=== PATIENT | female | born 1935 | race Hispanic/Latino ===

== ENCOUNTER 2018-03-09 12:28 | Emergency (ER) | payer MEDICARE ==
[2018-03-09 12:33] VITALS: PULSE 71; RESP 16; TEMP 98; O2SAT 100
[2018-03-09] MEDS ORDERED: Tdap Vaccine 0.5 ml Vial (10-64 yrs) IM ONE ×2 (12:52→13:00)
--- NOTE | 2018-03-09 13:24 | ED PDOC ---
HPI: Head Injury Time Seen by Provider: 03/09/18 12:52 Chief Complaint (Nursing): Abnormal Skin Integrity Chief Complaint (Provider): Head trauma History Per: Patient History/Exam Limitations: no limitations Injury Occurred (Timing): Just Before Arrival Onset/Duration Of Symptoms: Hrs (1 hour [employer]CH [employer]) Patient States: Fell Striking Head Loss Of Consciousness: No Additional Complaint(s): 82 year old female presents to the ED for evaluation after slipping on the wet floor and striking the right side of her forehead. She has a laceration on her right eyebrow. Patient reports taking a baby aspirin every night before she goes to sleep. Otherwise: (-) LOC, (-) headache, (-) neck pain, (-) other injury , (-) nausea, (-) vomiting, (-) dizziness, (-) other trauma, (-) subjective neurologic symptoms. PMD: Kade Holliday Past Medical History Reviewed: Historical Data, Nursing Documentation, Vital Signs Vital Signs: Last Vital Signs Temp 98.0 F 03/09/18 12:31 Pulse 71 03/09/18 12:31 Resp 16 03/09/18 12:31 BP 164/72 H 03/09/18 12:31 Pulse Ox 100 03/09/18 12:31 - Medical History PMH: HTN - Surgical History Surgical History: No Surg Hx - Family History Family History: States: Unknown Family Hx - Allergies Allergies/Adverse Reactions: Allergies Allergy/AdvReac Type Severity Reaction Status Date / Time No Known Allergies Allergy Verified 03/09/18 12:31 Review of Systems ROS Statement: Except As Marked, All Systems Reviewed And Found Negative Eyes: Positive for: Other (laceration to right eyebrow) Physical Exam - Reviewed Nursing Documentation Reviewed: Yes Vital Signs Reviewed: Yes - Physical Exam Comments: GENERAL APPEARANCE: Patient is awake, alert, oriented x 3, in no acute distress. SKIN: Warm, dry; (-) cyanosis; (-) rash. (+) 1.5 cm superficial laceration to right eyebrow. HEAD: (-) scalp swelling or tenderness. EYES: (-) conjunctival pallor, (-) scleral icterus. ENMT: (-) sinus tenderness; mucous membranes are moist. NECK: (-) tenderness, (-) stiffness, (-) meningismus, (-) lymphadenopathy. CHEST AND RESPIRATORY: (-) rales, (-) rhonchi, (-) wheezes; breath sounds equal bilaterally. HEART AND CARDIOVASCULAR: (-) irregularity; (-) murmur, (-) gallop. ABDOMEN AND GI: Soft; (-) tenderness. EXTREMITIES: (-) deformity. NEURO AND PSYCH: Mental status as above. web search evaluator: Pupils equal and reactive; EOMI; (-) facial asymmetry; tongue and uvula midline. Strength symmetric. - ECG O2 Sat by Pulse Oximetry: 100 (RA) Pulse Ox Interpretation: Normal Medical Decision Making Medical Decision Making: Tme: 12:52 Initial Plan: --CT Head --Tetanus .5 ml IM --Dermabond Time: 13:20 --Patient remains awake, alert, oriented x 3 and is laying in bed comfortably. On exam, neck is supple, repeat neuro shows no focal findings. --Prior to discharge, blood pressure was 196/89. Patient states she feels well and denies headache, dizziness, chest pain and shortness of breath. Patient was advised for continued observation in the ER due to high blood pressure and to wait for repeat blood pressure which she refused. States her blood pressure is elevated because she is anxious from being in the hospital and that she would rather be discharged than stay. Patient was notified of the risk of leaving with high blood pressure and admits she understands the risk, still wants to leave the ER and feels comfortable going home. Advised to follow up with primary care physician in 1-2 days without fail. Advised to follow up elevated bp with pmd. Return to the emergency room at any time for any new or worsening symptoms. Patient states she fully agrees with and understands discharge instructions. States that she agrees with the plan and disposition. Verbalized and repeated discharge instructions and plan. I have given the patient opportunity to ask any additional questions. Scribe Attestation: Documented by Brittaney Greenfield acting as a scribe for Adalgisa Jones PA-C MD Scribe Attestation: All medical record entries made by the Scribe were at my direction and personally dictated by me. I have reviewed the chart and agree that the record accurately reflects my personal performance of the history, physical exam, medical decision making, and the department course for this patient. I have also personally directed, reviewed, and agree with the discharge instructions and disposition. Procedures - Laceration/Wound Repair Right Upper Eye Wound Length (cm): 1.5 Wound's Depth, Shape: superficial Wound Explored: clean Irrigated w/ Saline (ccs): 50 Wound Repaired With: Skin adhesive (Dermabond) Wound Complexity: Simple Progress: Patient tolerated the procedure well. Disposition - Clinical Impression Clinical Impression: Head injury, Facial laceration - Patient ED Disposition Is Patient to be Admitted: No Counseled Patient/Family Regarding: Studies Performed, Diagnosis, Need For Followup - Disposition Disposition: Routine/Home Disposition Time: 14:30 Condition: STABLE Additional Instructions: Thank you for letting us take care of you today. You were treated for head injury, facial laceration. The emergency medical care you received today was directed at your acute symptoms. Return to the Emergency Department if your symptoms worsen, do not improve, or if you have any other problems. Please contact your doctor in 2 days for re-evaluation and follow up. Bring any paperwork you were given at discharge with you along with any medications you are taking to your follow up visit. Our treatment cannot replace ongoing medical care by a primary care provider (PCP) outside of the emergency department. Thank you for allowing the [facility] team to be part of your care today. If you had a CT scan: A Radiologist will review the ED reading if any change in treatment is needed we will contact you. Instructions: Laceration Repair With Glue (DC), Minor Head Injury Forms: [employer] (Chinese) - PA / BOX TENDER / Resident Statement MD/ has reviewed & agrees with the documentation as recorded.
--- NOTE | 2018-03-09 14:12 | CT ---
PROCEDURE: CT HEAD WITHOUT CONTRAST. HISTORY: fall, trauma COMPARISON: None available. TECHNIQUE: Axial computed tomography images were obtained through the head/brain without intravenous contrast. Radiation dose: Total exam DLP = 711.68 mGy-cm. This CT exam was performed using one or more of the following dose reduction techniques: Automated exposure control, adjustment of the mA and/or kV according to patient size, and/or use of iterative reconstruction technique. FINDINGS: HEMORRHAGE: No intracranial hemorrhage. BRAIN: Good corticomedullary differentiation is seen. Diffuse expansion of the ventriculosulcal and cisternal spaces is appreciated with white matter lucency compatible with diffuse cerebral atrophy and chronic microangiopathy. No suspicious extra-axial fluid collection is identified and the midline brain anatomy appears grossly nonfocal as imaged. There is no mass effect throughout. VENTRICLES: Unremarkable. No hydrocephalus. CALVARIUM: No destructive bony lesion or displaced fracture identified including through the skullbase. PARANASAL SINUSES: Unremarkable as visualized. No significant inflammatory changes. MASTOID AIR CELLS: Unremarkable as visualized. No inflammatory changes. OTHER FINDINGS: None. IMPRESSION: No acute intracranial or calvarial findings. Skull base appears intact grossly. Age-appropriate age related neuro degenerative changes are identified.
[2018-03-09 15:08] VITALS: BP 196/89
== END 2018-03-09 15:05 | disposition home or self-care (01) ==
LOC: H.ER 12:28
DX: S01.111A Laceration without foreign body of right eyelid and periocular area, initial encounter (principal); S09.90XA Unspecified injury of head, initial encounter; W19.XXXA Unspecified fall, initial encounter; Y92.89 Other specified places as the place of occurrence of the external cause; I10 Essential (primary) hypertension

== ENCOUNTER 2018-04-07 14:43 | Inpatient (IN) | payer MEDICARE ==
--- NOTE | 2018-04-07 15:29 | ED PDOC ---
Lower Extremity Pain/Injury Time Seen by Provider: 04/07/18 15:13 Chief Complaint (Nursing): Lower Extremity Problem/Injury Chief Complaint (Provider): Pedal Edema History Per: Patient History/Exam Limitations: no limitations Onset/Duration Of Symptoms: Days (three) Current Symptoms Are (Timing): Still Present Severity: Mild Pain Scale Rating Of: 0 - Risk Factors DVT Risk Factors: Pos: Decreased Mobility, Decreased Activity Past Medical History Reviewed: Historical Data, Nursing Documentation, Vital Signs Vital Signs: Last Vital Signs Temp 98.8 F 04/07/18 14:53 Pulse 72 04/07/18 14:53 Resp 18 04/07/18 14:53 BP Pulse Ox 98 04/07/18 14:53 - Medical History PMH: HTN - Family History Family History: States: Unknown Family Hx - Allergies Allergies/Adverse Reactions: Allergies Allergy/AdvReac Type Severity Reaction Status Date / Time No Known Allergies Allergy Verified 04/07/18 14:53 Wells Criteria for PE - Wells Criteria for Pulmonary Embolism P.E is #1 Diagnosis, or Equally Likely: No Heart Rate >100: No Immobilization at least 3 days;Surgery previous 4 weeks: No Previous, objectively diagnosed PE or DVT: No Total Score: 0 Review of Systems ROS Statement: Except As Marked, All Systems Reviewed And Found Negative Cardiovascular: Positive for: Edema Physical Exam - Reviewed Nursing Documentation Reviewed: Yes Vital Signs Reviewed: Yes - Physical Exam Appears: Positive for: Well, Non-toxic, No Acute Distress. Negative for: Uncomfortable Head Exam: Positive for: ATRAUMATIC, NORMAL INSPECTION, NORMOCEPHALIC Skin: Positive for: Normal Color, Warm, Dry Eye Exam: Positive for: Normal appearance. Negative for: Periorbital swelling, Periorbital tenderness Neck: Positive for: Normal, Painless ROM, Supple Cardiovascular/Chest: Positive for: Regular Rate, Rhythm. Negative for: Bradycardia, Tachycardia Respiratory: Positive for: Normal Breath Sounds. Negative for: Crackles, Rales , Rhonchi, Stridor, Wheezing, Respiratory Distress Pulses-Carotid (L): 2+ Pulses-Carotid (R): 2+ Pulses-Post. Tibialis (L): 2+ Pulses-Post. Tibialis (R): 2+ Extremity: Positive for: Pedal Edema (bilaterally distal to ankles only) DTR - Knee (R): 2+ DTR - Knee (L): 2+ DTR - Ankle (R): 2+ DTR - Ankle (L): 2+ - Laboratory Results Result Diagrams: 04/07/18 15:30 04/07/18 15:30 - ECG O2 Sat by Pulse Oximetry: 98 Medical Decision Making Medical Decision Making: pedal edema r/o DVT, absent warmth or erythemity and pain Disposition - Clinical Impression Clinical Impression: Heart failure - Patient ED Disposition Is Patient to be Admitted: Yes Discussed With DrFrances: Tyler Billingsley Doctor Will See Patient In The: Hospital Counseled Patient/Family Regarding: Studies Performed, Diagnosis, Need For Followup - Disposition Disposition: Routine/Home Disposition Time: 17:38 Condition: STABLE - Pt Status Changed To: Hospital Disposition Of: Inpatient - Admit Certification Admit to Inpatient:: After my assessment, the patient will require hospitalization for at least two midnights. This is because of the severity of symptoms shown, intensity of services needed, and/or the medical risk in this patient being treated as an outpatient.
[2018-04-07 15:39] LABS: BASO % 0.4 % (0.0-2.0); EOS % 0.2 % (0.0-4.0); HEMOGLOBIN 13.1 g/dL (12.0-16.0); LYMPH # 0.4 K/uL (1.0-4.3); LYMPH % 4.1 % (20.0-40.0); MEAN CELL VOLUME 88.4 fl (81.0-99.0); MEAN CORPUSCULAR HEMOGLOBIN 31.1 pg (27.0-31.0); MEAN CORPUSCULAR HGB CONC 35.1 g/dL (33.0-37.0); MEAN PLATELET VOLUME 7.3 fl (7.2-11.7); MONO # 0.8 K/uL (0.0-0.8); MONO % 7.8 % (0.0-10.0); NEUT # 9.1 K/uL (1.8-7.0); NEUT % 87.5 % (50.0-75.0); NRBC % 0.1 % (0.0-0.0); PLATELET COUNT 412 K/uL (130-400); RBC 4.22 Mil/uL (3.80-5.20); RED CELL DISTRIBUTION WIDTH 14.4 % (11.5-14.5); WHITE BLOOD COUNT 10.4 K/uL (4.8-10.8)
--- NOTE | 2018-04-07 15:56 | RAD ---
HISTORY: r/o cardiom COMPARISON: No prior. FINDINGS: LUNGS: There are fibrotic changes in the upper lobes with calcified granulomas. There is also pulmonary venous congestion. No focal consolidation. No active pulmonary disease. PLEURA: No significant pleural effusion identified, no pneumothorax apparent. CARDIOVASCULAR: Normal. OSSEOUS STRUCTURES: No significant abnormalities. VISUALIZED UPPER ABDOMEN: Normal. OTHER FINDINGS: None. IMPRESSION: Pulmonary venous congestion. No active pulmonary disease. COPD.
[2018-04-07 16:02] LABS: ALB/GLOB RATIO 0.8 (1.0-2.1); ALBUMIN 3.5 g/dL (3.5-5.0); ALT/SGPT 59 U/L (9-52); AST/SGOT 39 U/L (14-36); B-TYPE NATRIURETIC PEPTIDE 2360 pg/ml (0-900); BLOOD UREA NITROGEN 17 mg/dl (7-17); GFR AFRICAN-AMERICAN > 60; GFR NON-AFRICAN AMERICAN > 60
[2018-04-07 16:43] LABS: SQUAMOUS EPITHIAL 4 /hpf (0-5); URINE AMORPHOUS SEDIMENT RARE /ul (<OCC); URINE BACTERIA RARE (<OCC); URINE BILIRUBIN NEGATIVE (NEGATIVE); URINE BLOOD NEGATIVE (NEGATIVE); URINE CLARITY CLOUDY (Clear); URINE COLOR YELLOW (YELLOW); URINE GLUCOSE (UA) 50 mg/dL (Normal); URINE LEUKOCYTE ESTERASE LARGE Leu/uL (Negative); URINE PROTEIN 30 mg/dL (NEGATIVE); URINE UROBILINOGEN 0.2-1.0 mg/dL (0.2-1.0)
[2018-04-07 17:31] LABS: BANDS 5 % (0-2); LYMPHOCYTE 5 % (20-50); MONOCYTE 9 % (0-10); NEUTROPHIL 81 % (42-75); TOTAL CELLS COUNTED 100
[2018-04-07 17:32] LABS: PLATELET ESTIMATE NORMAL (NORMAL)
[2018-04-08] MEDS ORDERED: Pneumococcal 23-Valent Vaccine IM ONE (06:00)
[2018-04-08 07:17] LABS: T4 7.5 ug/dl (5.5-11.0)
[2018-04-08 07:31] LABS: T3 0.88 nmol/L (1.49-2.60)
[2018-04-08] MEDS: Potassium Chloride 20 mEq ER Tab PO SCH (09:15)
--- NOTE | 2018-04-08 10:05 | US ---
PROCEDURE: Bilateral lower extremity venous duplex Doppler. HISTORY: r/o dvt COMPARISON: None available. TECHNIQUE: Bilateral common femoral, superficial femoral, popliteal and posterior tibial veins were evaluated. Flow was assessed with color Doppler, compressibility, assessment of phasic flow and augmentation response. FINDINGS: COMMON FEMORAL VEIN: Right CFV: There is normal color flow, compressibility and augmentation response. Left CFV: There is normal color flow, compressibility and augmentation response. SUPERFICIAL FEMORAL VEIN: Right SFV: There is normal color flow, compressibility and augmentation response. Left SFV: There is normal color flow, compressibility and augmentation response. POPLITEAL VEIN: Right Popliteal: There is normal color flow, compressibility and augmentation response. Left Popliteal: There is normal color flow, compressibility and augmentation response. POSTERIOR TIBIAL VEIN: Right PTV: There is normal color flow, compressibility and augmentation response. Left PTV: There is normal color flow, compressibility and augmentation response. OTHER FINDINGS: No popliteal cyst. IMPRESSION: No evidence of deep venous thrombosis. A preliminary report was provided by [employer] [facility].
--- NOTE | 2018-04-08 12:04 | CP.PCM.CON ---
History of Present Illness - History of Present Illness History of Present Illness: I was asked to evaluate patient by Dr Billingsley. Patient is a 82 year old female with PMH HTN who presents with dyspnea. Symptpoms abegan about 3 weeks ago and have been progressive. The patient complains of dyspnea on exertion which is sorse after walking one block. The patient also developed lower extremity edema. Pro BNP was elevated. Review of Systems - Constitutional Constitutional: absent: As Per HPI, Anorexia, Chills, Daytime Sleepiness, Excessive Sweating, Fatigue, Fever, Frequent Falls, Headache, Increased Appetite , Lethargy, Malaise, Night Sweats, Snoring, Sleep Apnea, Weight Gain, Weight Loss, Weakness, Other - EENT Eyes: absent: As Per HPI, Blind Spots, Blurred Vision, Change in Vision, Decreased Night Vision, Diplopia, Discharge, Dry Eye, Exophthalmos, Floaters, Irritation, Itchy Eyes, Loss of Peripheral Vision, Pain, Photophobia, Requires Corrective Lenses, Sees Flashes, Spots in Vision, Tunnel Vision, Other Visual Disturbances, Loss of Vision, Other Ears: absent: As Per HPI, Decreased Hearing, Ear Discharge, Ear Pain, Tinnitus, Abnormal Hearing, Disequilibrium, Dizziness, Other Nose/Mouth/Throat: absent: As Per HPI, Epistaxis, Nasal Congestion, Nasal Discharge, Nasal Obstruction, Nasal Trauma, Nose Pain, Post Nasal Drip, Sinus Pain, Sinus Pressure, Bleeding Gums, Change in Voice, Dental Pain, Dry Mouth, Dysphagia, Halitosis, Hoarsness, Lip Swelling, Mouth Lesions, Mouth Pain, Odynophagia, Sore Throat, Throat Swelling, Tongue Swelling, Facial Pain, Neck Pain, Neck Mass, Other - Cardiovascular Cardiovascular: Dyspnea, Leg Edema - Respiratory Respiratory: Dyspnea - Gastrointestinal Gastrointestinal: absent: As Per HPI, Abdominal Pain, Belching, Bloating, Change in Bowel Habits, Change in Stool Character, Coffee Ground Emesis, Constipation, Cramping, Diarrhea, Dyspepsia, Dysphagia, Early Satiety, Excessive Flatus, Fecal Incontinence, Heartburn, Hematemesis, Hematochezia, Loose Stools, Melena, Nausea, Odynophagia, Temesmus, Vomiting, Other - Genitourinary Genitourinary: absent: As Per HPI, Change in Urinary Stream, Difficulty Urinating, Dysuria, Flank Pain, Hematuria, Pyuria, Nocturia, Urinary Incontinence, Urinary Frequency, Urinary Hesitance, Urinary Urgency, Voiding Freq/Small Amts, Freq UTI, Hx Renal/Bladder Calculi, Hx /Renal Surgery, Bladder Distension, Other - Musculoskeletal Musculoskeletal: absent: As Per HPI, Abnormal Gait, Arthralgias, Atrophy, Back Pain, Deformity, Joint Swelling, Limited Range of Motion, Loss of Height, Muscle Cramps, Muscle Weakness, Myalgias, Neck Pain, Numbness, Radiating Pain into Limb, Stiffness, Tingling, Other - Integumentary Integumentary: absent: As Per HPI, Acne, Alopecia, Bleeding Lesions, Change in Hair, Change in Nails, Change in Pigmentation, Changing Lesions, Dry Skin, Erythema, Furuncle, Hirsutism, Lesions, New Lesions, Non-Healing Lesions, Photosensitivity, Pruritus, Rash, Skin Pain, Skin Ulcer, Sores, Striae, Swelling , Unusual Bruising, Wounds, Jaundice, Other - Neurological Neurological: absent: As Per HPI, Abnormal Gait, Abnormal Hearing, Abnormal Movements, Abnormal Speech, Behavioral Changes, Burning Sensations, Confusion, Convulsions, Disequilibrium, Dizziness, Numbness, Focal Weakness, Frequent Falls , Headaches, Lack of Coordination, Loss of Vision, Memory Loss, Paresthesias, Radicular Pain, Restless Legs, Sensory Deficit, Syncope, Tingling, Tremor, Vertigo, Weakness, Other Visual Disturbances, Other - Psychiatric Psychiatric: absent: As Per HPI, Abnormal Sleep Pattern, Anhedonia, Anxiety, Auditory Hallucinations, Behavioral Changes, Change in Appetite, Change in Libido, Confusion, Depression, Difficulty Concentrating, Hallucinations, Homicidal Ideation, Hopelessness, Irritability, Memory Loss, Mood Swings, Panic Attacks, Paranoia, Suicidal Ideation, Visual Hallucinations, Tactile Hallucinations, Other - Endocrine Endocrine: absent: As Per HPI, Change in Body Appearance, Change in Libido, Cold Intolorance, Deepening of Voice, Excessive Sweating, Fatigue, Flushing, Heat Intolorance, Increase in Ring/Shoe/Hat Size, Palpitations, Polydipsia, Polyphagia, Polyuria, Other - Hematologic/Lymphatic Hematologic: absent: As Per HPI, Easy Bleeding, Easy Bruising, Lymphadenopathy, Other Past Patient History - Past Medical History & Family History Past Medical History?: Yes - Past Social History Smoking Status: Former Smoker - CARDIAC Hx Cardiac Disorders: Yes (HTN) Hx Hypertension: Yes - PULMONARY Hx Respiratory Disorders: No - NEUROLOGICAL Hx Neurological Disorder: No - HEENT Hx HEENT Problems: No - RENAL Hx Chronic Kidney Disease: No - ENDOCRINE/METABOLIC Hx Endocrine Disorders: No - HEMATOLOGICAL/ONCOLOGICAL Hx Blood Disorders: No - INTEGUMENTARY Hx Dermatological Problems: No - MUSCULOSKELETAL/RHEUMATOLOGICAL Hx Musculoskeletal Disorders: No Hx Falls: Yes - GASTROINTESTINAL Hx Gastrointestinal Disorders: No - GENITOURINARY/GYNECOLOGICAL Hx Genitourinary Disorders: No - PSYCHIATRIC Hx Psychophysiologic Disorder: No Hx Substance Use: No - SURGICAL HISTORY Hx Surgeries: Yes Hx Hysterectomy: Yes (at age 29) - ANESTHESIA Hx Anesthesia: Yes Hx Anesthesia Reactions: No Hx Malignant Hyperthermia: No Has any member of the family had a problem w/ anesthesia?: No Meds Allergies/Adverse Reactions: Allergies Allergy/AdvReac Type Severity Reaction Status Date / Time No Known Allergies Allergy Verified 04/07/18 14:53 - Medications Medications: Current Medications Atorvastatin Calcium (Lipitor) 20 mg PO [facility] Clonidine HCl (Catapres) 0.1 mg PO BID [facility] Last Admin: 04/08/18 09:14 Dose: 0.1 mg Furosemide (Lasix) 40 mg IV DAILY [facility] Last Admin: 04/08/18 09:15 Dose: 40 mg Metoprolol Tartrate (Lopressor) 200 mg PO BID [facility] Last Admin: 04/08/18 09:16 Dose: 200 mg Potassium Chloride (K-Dur 20 Meq Er Tab) 20 meq PO DAILY [facility] Last Admin: 04/08/18 09:15 Dose: 20 meq Valsartan (Diovan) 320 mg PO DAILY [facility] Last Admin: 04/08/18 09:14 Dose: 320 mg Physical Exam - Constitutional Appears: Non-toxic - Head Exam Head Exam: NORMAL INSPECTION - Eye Exam Eye Exam: Normal appearance - ENT Exam ENT Exam: Mucous Membranes Moist - Neck Exam Neck exam: Positive for: Full Rom - Respiratory Exam Respiratory Exam: Decreased Breath Sounds - Cardiovascular Exam Cardiovascular Exam: REGULAR RHYTHM - GI/Abdominal Exam GI & Abdominal Exam: Normal Bowel Sounds - Rectal Exam Rectal Exam: Deferred - Extremities Exam Extremities exam: Positive for: pedal edema - Back Exam Back exam: NORMAL INSPECTION - Neurological Exam Neurological exam: Alert, Oriented x3 - Psychiatric Exam Psychiatric exam: Normal Affect - Skin Skin Exam: Normal Color Results - Vital Signs Recent Vital Signs: Last Vital Signs Temp 98.4 F 04/08/18 08:17 Pulse 99 H 04/08/18 09:16 Resp 20 04/08/18 08:17 BP 133/74 04/08/18 09:16 Pulse Ox 95 04/08/18 08:17 - Labs Result Diagrams: 04/07/18 15:30 04/07/18 15:30 Labs: Laboratory Results - last 24 hr 04/07/18 04/07/18 04/07/18 15:30 15:30 16:15 WBC 10.4 RBC 4.22 Hgb 13.1 Hct 37.3 MCV 88.4 MCH 31.1 H MCHC 35.1 RDW 14.4 Plt Count 412 H MPV 7.3 Neut % (Auto) 87.5 H Lymph % (Auto) 4.1 L Noble % (Auto) 7.8 Eos % (Auto) 0.2 Baso % (Auto) 0.4 Neut # (Auto) 9.1 H Lymph # (Auto) 0.4 L Noble # (Auto) 0.8 Eos # (Auto) 0.0 Baso # (Auto) 0.0 Neutrophils % (Manual) 81 H Band Neutrophils % 5 H Lymphocytes % (Manual) 5 L Monocytes % (Manual) 9 Platelet Estimate Normal ESR 65 H Sodium 130 L Potassium 3.4 L Chloride 86 L Carbon Dioxide 30 Anion Gap 17 BUN 17 Creatinine 0.5 L Est GFR ( Amer) > 60 Est GFR (Non-Af Amer) > 60 Random Glucose 143 H Calcium 9.0 Total Bilirubin 1.1 AST 39 H ALT 59 H Alkaline Phosphatase 72 Troponin I 0.0210 NT-Pro-B Natriuret Pep 2360 H Total Protein 7.9 Albumin 3.5 Globulin 4.4 H Albumin/Globulin Ratio 0.8 L Triglycerides Cholesterol LDL Cholesterol Direct HDL Cholesterol Thyroxine (T4) Total T3 TSH 3rd Generation Urine Color Yellow Urine Clarity Cloudy Urine pH 7.0 Ur Specific Aldrich 1.012 Urine Protein 30 Urine Glucose (UA) 50 Urine Ketones Negative Urine Blood Negative Urine Nitrate Positive H Urine Bilirubin Negative Urine Urobilinogen 0.2-1.0 Ur Leukocyte Esterase Large Urine RBC (Auto) 4 H Urine Microscopic WBC 65 H Ur Squamous Epith Cells 4 Amorphous Sediment Rare H Urine Bacteria Rare 04/07/18 04/08/18 04/08/18 23:17 06:01 07:55 WBC RBC Hgb Hct MCV MCH MCHC RDW Plt Count MPV Neut % (Auto) Lymph % (Auto) Noble % (Auto) Eos % (Auto) Baso % (Auto) Neut # (Auto) Lymph # (Auto) Noble # (Auto) Eos # (Auto) Baso # (Auto) Neutrophils % (Manual) Band Neutrophils % Lymphocytes % (Manual) Monocytes % (Manual) Platelet Estimate ESR Sodium Potassium Chloride Carbon Dioxide Anion Gap BUN Creatinine Est GFR ( Amer) Est GFR (Non-Af Amer) Random Glucose Calcium Total Bilirubin AST ALT Alkaline Phosphatase Troponin I 0.0310 0.0180 NT-Pro-B Natriuret Pep 3180 H Total Protein Albumin Globulin Albumin/Globulin Ratio Triglycerides 76 Cholesterol 118 LDL Cholesterol Direct 60 HDL Cholesterol 29 L Thyroxine (T4) 7.50 Total T3 0.880 L TSH 3rd Generation 1.03 Urine Color Urine Clarity Urine pH Ur Specific Aldrich Urine Protein Urine Glucose (UA) Urine Ketones Urine Blood Urine Nitrate Urine Bilirubin Urine Urobilinogen Ur Leukocyte Esterase Urine RBC (Auto) Urine Microscopic WBC Ur Squamous Epith Cells Amorphous Sediment Urine Bacteria - EKG Data EKG Interpreted by: Myself EKG shows normal: Sinus rhythm Assessment & Plan (1) Dyspnea Assessment and Plan: tristian cardiac etiology. will obtain echocardiogram Status: Acute (2) Congestive heart failure Assessment and Plan: follow up echo Status: Acute
--- NOTE | 2018-04-08 14:36 | CP.PCM.HP ---
History of Present Illness - History of Present Illness History of Present Illness: This is an 82 y/o female with hx of HTN was admitted for progressive SOB and cough and noted bilateral feet edema for few days. She denies any chest pain. Claims that she had seen her PMD and had full work up and was told to have normal results. She claims to have episodes of SOB and some " anxiety" but was never given treatment. She was noted to have elevated BP despite current medications. At the ER, she was noted to have elevated proBNP. Current meds: Irbesartan Hct, Metoprolol, Clonidine and simvastatin Present on Admission - Present on Admission Any Indicators Present on Admission: No History of DVT/PE: No History of Uncontrolled Diabetes: No Urinary Catheter: No Decubitus Ulcer Present: No Review of Systems - Respiratory Respiratory: Dyspnea, Chest Congestion Past Patient History - Past Medical History & Family History Past Medical History?: Yes - Past Social History Smoking Status: Former Smoker - CARDIAC Hx Cardiac Disorders: Yes (HTN) Hx Hypertension: Yes - PULMONARY Hx Respiratory Disorders: No - NEUROLOGICAL Hx Neurological Disorder: No - HEENT Hx HEENT Problems: No - RENAL Hx Chronic Kidney Disease: No - ENDOCRINE/METABOLIC Hx Endocrine Disorders: No - HEMATOLOGICAL/ONCOLOGICAL Hx Blood Disorders: No - INTEGUMENTARY Hx Dermatological Problems: No - MUSCULOSKELETAL/RHEUMATOLOGICAL Hx Musculoskeletal Disorders: No Hx Falls: Yes - GASTROINTESTINAL Hx Gastrointestinal Disorders: No - GENITOURINARY/GYNECOLOGICAL Hx Genitourinary Disorders: No - PSYCHIATRIC Hx Psychophysiologic Disorder: No Hx Substance Use: No - SURGICAL HISTORY Hx Surgeries: Yes Hx Hysterectomy: Yes (at age 29) - ANESTHESIA Hx Anesthesia: Yes Hx Anesthesia Reactions: No Hx Malignant Hyperthermia: No Has any member of the family had a problem w/ anesthesia?: No Meds Allergies/Adverse Reactions: Allergies Allergy/AdvReac Type Severity Reaction Status Date / Time No Known Allergies Allergy Verified 04/07/18 14:53 Physical Exam - Head Exam Head Exam: NORMAL INSPECTION - Eye Exam Eye Exam: Normal appearance - ENT Exam ENT Exam: Mucous Membranes Moist - Respiratory Exam Respiratory Exam: Decreased Breath Sounds - Cardiovascular Exam Cardiovascular Exam: REGULAR RHYTHM - GI/Abdominal Exam GI & Abdominal Exam: Normal Bowel Sounds - Neurological Exam Neurological exam: CN II-XII Intact - Psychiatric Exam Psychiatric exam: Normal Mood Results - Vital Signs Recent Vital Signs: Last Vital Signs Temp 98.0 F 04/08/18 12:10 Pulse 76 04/08/18 12:10 Resp 20 04/08/18 12:10 BP 116/62 04/08/18 12:10 Pulse Ox 97 04/08/18 12:10 - Labs Result Diagrams: 04/07/18 15:30 04/07/18 15:30 Labs: Laboratory Results - last 24 hr 04/07/18 04/07/18 04/07/18 15:30 15:30 16:15 WBC 10.4 RBC 4.22 Hgb 13.1 Hct 37.3 MCV 88.4 MCH 31.1 H MCHC 35.1 RDW 14.4 Plt Count 412 H MPV 7.3 Neut % (Auto) 87.5 H Lymph % (Auto) 4.1 L Alcorn % (Auto) 7.8 Eos % (Auto) 0.2 Baso % (Auto) 0.4 Neut # (Auto) 9.1 H Lymph # (Auto) 0.4 L [place] # (Auto) 0.8 Eos # (Auto) 0.0 Baso # (Auto) 0.0 Neutrophils % (Manual) 81 H Band Neutrophils % 5 H Lymphocytes % (Manual) 5 L Monocytes % (Manual) 9 Platelet Estimate Normal ESR 65 H Sodium 130 L Potassium 3.4 L Chloride 86 L Carbon Dioxide 30 Anion Gap 17 BUN 17 Creatinine 0.5 L Est GFR ( Amer) > 60 Est GFR (Non-Af Amer) > 60 Random Glucose 143 H Calcium 9.0 Total Bilirubin 1.1 AST 39 H ALT 59 H Alkaline Phosphatase 72 Troponin I 0.0210 NT-Pro-B Natriuret Pep 2360 H Total Protein 7.9 Albumin 3.5 Globulin 4.4 H Albumin/Globulin Ratio 0.8 L Triglycerides Cholesterol LDL Cholesterol Direct HDL Cholesterol Thyroxine (T4) Total T3 TSH 3rd Generation Urine Color Yellow Urine Clarity Cloudy Urine pH 7.0 Ur Specific [place] 1.012 Urine Protein 30 Urine Glucose (UA) 50 Urine Ketones Negative Urine Blood Negative Urine Nitrate Positive H Urine Bilirubin Negative Urine Urobilinogen 0.2-1.0 Ur Leukocyte Esterase Large Urine RBC (Auto) 4 H Urine Microscopic WBC 65 H Ur Squamous Epith Cells 4 Amorphous Sediment Rare H Urine Bacteria Rare 04/07/18 04/08/18 04/08/18 23:17 06:01 07:55 WBC RBC Hgb Hct MCV MCH MCHC RDW Plt Count MPV Neut % (Auto) Lymph % (Auto) [place] % (Auto) Eos % (Auto) Baso % (Auto) Neut # (Auto) Lymph # (Auto) [place] # (Auto) Eos # (Auto) Baso # (Auto) Neutrophils % (Manual) Band Neutrophils % Lymphocytes % (Manual) Monocytes % (Manual) Platelet Estimate ESR Sodium Potassium Chloride Carbon Dioxide Anion Gap BUN Creatinine Est GFR ( Amer) Est GFR (Non-Af Amer) Random Glucose Calcium Total Bilirubin AST ALT Alkaline Phosphatase Troponin I 0.0310 0.0180 NT-Pro-B Natriuret Pep 3180 H Total Protein Albumin Globulin Albumin/Globulin Ratio Triglycerides 76 Cholesterol 118 LDL Cholesterol Direct 60 HDL Cholesterol 29 L Thyroxine (T4) 7.50 Total T3 0.880 L TSH 3rd Generation 1.03 Urine Color Urine Clarity Urine pH Ur Specific [place] Urine Protein Urine Glucose (UA) Urine Ketones Urine Blood Urine Nitrate Urine Bilirubin Urine Urobilinogen Ur Leukocyte Esterase Urine RBC (Auto) Urine Microscopic WBC Ur Squamous Epith Cells Amorphous Sediment Urine Bacteria Assessment & Plan (1) Congestive heart failure Status: Acute (2) Hypertension Status: Acute (3) Anxiety Status: Acute (4) Hyperlipidemia Status: Acute - Assessment and Plan (Free Text) Plan: StartIV Lasix fluid restriction to 1000 cc to 1250 cc per dya Valsartan Metoprolol ECHO cardiology eval check troponin
--- NOTE | 2018-04-08 14:40 | CP.PCM.PN ---
Subjective - Date & Time of Evaluation Date of Evaluation: 04/08/18 Time of Evaluation: 14:36 - Subjective Subjective: Patient feels a lot better. Still feels congested Noted feet edema to have resolved. Still with elevated proBNP. Has no chest pain. BP has been well controlled. Objective - Vital Signs/Intake and Output Vital Signs (last 24 hours): Temp Pulse Resp BP Pulse Ox 98.0 F 76 20 116/62 97 04/08/18 12:10 04/08/18 12:10 04/08/18 12:10 04/08/18 12:10 04/08/18 12:10 - Medications Medications: Current Medications Atorvastatin Calcium (Lipitor) 20 mg PO [facility] Clonidine HCl (Catapres) 0.1 mg PO BID [facility] Last Admin: 04/08/18 09:14 Dose: 0.1 mg Furosemide (Lasix) 40 mg IV DAILY [facility] Last Admin: 04/08/18 09:15 Dose: 40 mg Metoprolol Tartrate (Lopressor) 200 mg PO BID [facility] Last Admin: 04/08/18 09:16 Dose: 200 mg Potassium Chloride (K-Dur 20 Meq Er Tab) 20 meq PO DAILY [facility] Last Admin: 04/08/18 09:15 Dose: 20 meq Valsartan (Diovan) 320 mg PO DAILY [facility] Last Admin: 04/08/18 09:14 Dose: 320 mg - Labs Labs: 04/07/18 15:30 04/07/18 15:30 - Head Exam Head Exam: NORMAL INSPECTION - Eye Exam Eye Exam: Normal appearance - ENT Exam ENT Exam: Mucous Membranes Moist - Respiratory Exam Respiratory Exam: Clear to Ausculation Bilateral - GI/Abdominal Exam GI & Abdominal Exam: Normal Bowel Sounds - Neurological Exam Neurological Exam: CN II-XII Intact, Oriented x3 Assessment and Plan (1) Congestive heart failure Status: Acute (2) Hypertension Status: Acute (3) Hyperlipidemia Status: Acute (4) Anxiety Status: Acute - Assessment and Plan (Free Text) Plan: Cont meds Cont tx Follow up with Cardiology Con t meds start PT refused anxiolytic for now.
--- NOTE | 2018-04-08 14:56 | CARD ---
APPROVED REPORT EKG Measurement Heart [id number] <Conclusion> Sinus rhythm with occasional premature ventricular complexes Possible Left atrial enlargement Left ventricular hypertrophy Cannot rule out Septal infarct, age undetermined Abnormal ECG
[2018-04-08] MEDS ORDERED: Patient's Own Med (Simvastatin [Zocor] 40 MG) PO SCH (22:00)
[2018-04-09 06:07] LABS: BASO % 0.5 % (0.0-2.0); EOS # 0.1 K/uL (0.0-0.7); EOS % 0.8 % (0.0-4.0); HEMOGLOBIN 12.9 g/dL (12.0-16.0); LYMPH # 0.6 K/uL (1.0-4.3); LYMPH % 7.6 % (20.0-40.0); MEAN CELL VOLUME 87.9 fl (81.0-99.0); MEAN CORPUSCULAR HEMOGLOBIN 30.4 pg (27.0-31.0); MEAN CORPUSCULAR HGB CONC 34.6 g/dL (33.0-37.0); MEAN PLATELET VOLUME 7.6 fl (7.2-11.7); MONO # 0.7 K/uL (0.0-0.8); MONO % 8.6 % (0.0-10.0); NEUT # 6.8 K/uL (1.8-7.0); NEUT % 82.5 % (50.0-75.0); NRBC % 0.1 % (0.0-0.0); RBC 4.25 Mil/uL (3.80-5.20); RED CELL DISTRIBUTION WIDTH 14.3 % (11.5-14.5); WHITE BLOOD COUNT 8.2 K/uL (4.8-10.8)
[2018-04-09 06:25] LABS: B-TYPE NATRIURETIC PEPTIDE 1290 pg/ml (0-900)
[2018-04-09 06:38] LABS: ALB/GLOB RATIO 0.8 (1.0-2.1); ALBUMIN 3.2 g/dL (3.5-5.0); ALT/SGPT 56 U/L (9-52); AST/SGOT 34 U/L (14-36); BLOOD UREA NITROGEN 22 mg/dl (7-17); CALCIUM 9.1 mg/dL (8.4-10.2); GFR AFRICAN-AMERICAN > 60; GFR NON-AFRICAN AMERICAN > 60
[2018-04-09] MEDS ORDERED: Potassium Chloride 20 mEq ER Tab PO ONE (08:18)
[2018-04-09] MEDS: Potassium Chloride 20 mEq ER Tab PO SCH (08:51)
--- NOTE | 2018-04-09 11:24 | CP.PCM.PN ---
Subjective - Date & Time of Evaluation Date of Evaluation: 04/09/18 Time of Evaluation: 11:20 - Subjective Subjective: chart reviewed. awaiting echocardiogram and will give further recommendations Objective - Vital Signs/Intake and Output Vital Signs (last 24 hours): Temp Pulse Resp BP Pulse Ox 97.5 F L 71 20 128/69 96 04/09/18 08:07 04/09/18 09:00 04/09/18 08:07 04/09/18 08:52 04/09/18 08:07 - Medications Medications: Current Medications Atorvastatin Calcium (Lipitor) 20 mg PO HS [facility] Last Admin: 04/08/18 21:29 Dose: 20 mg Ciprofloxacin (Cipro) 500 mg PO Q12 [facility] PRN Reason: Protocol Last Admin: 04/09/18 08:59 Dose: 500 mg Clonidine HCl (Catapres) 0.1 mg PO BID [facility] Last Admin: 04/09/18 08:52 Dose: 0.1 mg Furosemide (Lasix) 40 mg IV DAILY [facility] Last Admin: 04/09/18 08:51 Dose: 40 mg Metoprolol Tartrate (Lopressor) 200 mg PO BID [facility] Last Admin: 04/09/18 08:52 Dose: 200 mg Potassium Chloride (K-Dur 20 Meq Er Tab) 20 meq PO DAILY [facility] Last Admin: 04/09/18 08:51 Dose: 20 meq Valsartan (Diovan) 320 mg PO DAILY [facility] Last Admin: 04/09/18 08:51 Dose: 320 mg - Labs Labs: 04/09/18 04:30 04/09/18 04:30 Assessment and Plan (1) Dyspnea Status: Acute (2) Congestive heart failure Status: Acute
--- NOTE | 2018-04-09 23:57 | CP.PCM.PN ---
Subjective - Date & Time of Evaluation Date of Evaluation: 04/09/18 Time of Evaluation: 19:15 - Subjective Subjective: Noted decrease in probnp to 1200 Has no chest pain or SOB Afebrile BP has been well controlled. Objective - Vital Signs/Intake and Output Vital Signs (last 24 hours): Temp Pulse Resp BP Pulse Ox 97.7 F 71 16 106/67 96 04/09/18 20:11 04/09/18 20:11 04/09/18 20:11 04/09/18 20:11 04/09/18 20:11 - Medications Medications: Current Medications Atorvastatin Calcium (Lipitor) 20 mg PO HS [facility] Last Admin: 04/09/18 22:03 Dose: 20 mg Ciprofloxacin (Cipro) 500 mg PO Q12 [facility] PRN Reason: Protocol Last Admin: 04/09/18 22:04 Dose: 500 mg Clonidine HCl (Catapres) 0.1 mg PO BID [facility] Last Admin: 04/09/18 16:47 Dose: 0.1 mg Furosemide (Lasix) 40 mg IV DAILY [facility] Last Admin: 04/09/18 08:51 Dose: 40 mg Metoprolol Tartrate (Lopressor) 200 mg PO BID [facility] Last Admin: 04/09/18 16:48 Dose: 200 mg Potassium Chloride (K-Dur 20 Meq Er Tab) 20 meq PO DAILY [facility] Last Admin: 04/09/18 08:51 Dose: 20 meq Valsartan (Diovan) 320 mg PO DAILY [facility] Last Admin: 04/09/18 08:51 Dose: 320 mg - Labs Labs: 04/09/18 04:30 04/09/18 04:30 - Head Exam Head Exam: NORMAL INSPECTION - Eye Exam Eye Exam: Normal appearance - ENT Exam ENT Exam: Mucous Membranes Moist - Respiratory Exam Respiratory Exam: Clear to Ausculation Bilateral - Cardiovascular Exam Cardiovascular Exam: REGULAR RHYTHM - GI/Abdominal Exam GI & Abdominal Exam: Normal Bowel Sounds - Neurological Exam Neurological Exam: Awake, Oriented x3 Assessment and Plan (1) Congestive heart failure Status: Acute (2) Hypertension Status: Acute (3) Hyperlipidemia Status: Acute (4) Anxiety Status: Acute - Assessment and Plan (Free Text) Plan: Cont meds Cont tx low salt low fat 1000 cc fluid restriction potassium
[2018-04-10 06:10] LABS: ALB/GLOB RATIO 0.7 (1.0-2.1); ALBUMIN 2.7 g/dL (3.5-5.0); ALT/SGPT 55 U/L (9-52); AST/SGOT 42 U/L (14-36); BLOOD UREA NITROGEN 24 mg/dl (7-17); CALCIUM 8.7 mg/dL (8.4-10.2); GFR AFRICAN-AMERICAN > 60; GFR NON-AFRICAN AMERICAN > 60
[2018-04-10] MEDS: Potassium Chloride 20 mEq ER Tab PO SCH (08:48)
--- NOTE | 2018-04-10 11:48 | CARD ---
APPROVED REPORT EXAM: Two-dimensional and M-mode echocardiogram with Doppler and color Doppler. Other Information Quality : GoodRhythm : Atrial Fibrillation INDICATION Congestive Heart Failure 2D DIMENSIONS IVSd1.12 (0.7-1.1cm)LVDd6.06 (3.9-5.9cm) LVOT Diameter2.22 (1.8-2.4cm)PWd1.07 (0.7-1.1cm) IVSs1.31 (0.8-1.2cm)LVDs4.09 (2.5-4.0cm) FS (%) 32.4 %PWs1.53 (0.8-1.2cm) M-Mode DIMENSIONS Left Atrium (MM)7.17 (2.5-4.0cm)IVSd0.99 (0.7-1.1cm) Aortic Root2.87 (2.2-3.7cm)LVDd6.36 (4.0-5.6cm) Aortic Cusp Exc.1.88 (1.5-2.0cm)PWd1.14 (0.7-1.1cm) IVSs1.40 cmFS (%) 21 % LVDs5.00 (2.0-3.8cm)PWs1.62 cm Mitral Valve E/A ratio0.0 TDI E/Lateral E'0.0E/Medial E'0.0 Pulmonary Valve PV Peak Aboaywif80.1cm/s Tricuspid Valve TR Peak Trjnwgos251em/sRAP [id number] Peak Gr.24mmHg [id number] LEFT VENTRICLE The Left Ventricle is mildly dilated on the 2D study. There is normal left ventricular wall thickness. Left ventricle systolic function is moderately to severely impaired. The Ejection Fraction is 35-40%. The LV wall motion appeared to vary from on view to another, but is general there was moderate to severe hypokinesia. The patient was in atrial fibrillation. No left ventricle thrombus noted on this study. There is no ventricular septal defect visualized. There is no left ventricular aneurysm. There is no mass noted in the left ventricle. RIGHT VENTRICLE The right ventricle is normal size. There is normal right ventricular wall thickness. The right ventricular systolic function is normal. ATRIA The left atrium is severely dilated. There is no thrombus suspected in the left atrium. The right atrium is moderately dilated. Color doppler studies revealed a small flow accross the mid interatrial septum from the left atrium to the right atrium that had the appearance of a small patent foramen ovale(PFO). Spectral doppler studies revealed the flow velocity accross this PFO was less than 1 meter/second. AORTIC VALVE The aortic valve is mildly calcified. No aortic regurgitation is present. There is no aortic valvular stenosis. MITRAL VALVE The mitral valve leaflets are mildly thickened. Mitral annular calcification is mild. There is no evidence of mitral valve prolapse. There is no mitral valve stenosis. Mitral regurgitation is mild. TRICUSPID VALVE The tricuspid valve is normal in structure. There is moderate to severe tricuspid regurgitation. Right ventricular systolic pressure is estimated at 41 mmHg. There is no tricuspid valve prolapse or vegetation. There is no tricuspid valve stenosis. PULMONIC VALVE The pulmonic valve is not well visualized. There is no pulmonic valvular regurgitation. GREAT VESSELS The aortic root is normal in size. The IVC is normal in size and collapses >50% with inspiration. PERICARDIAL EFFUSION The pericardium appears normal. There is no pleural effusion. <Conclusion> The study is only of fair quality. The Left Ventricle is mildly dilated on the 2D study. There is normal left ventricular wall thickness. Left ventricle systolic function is moderately to severely impaired. The Ejection Fraction is 35-40%. The left atrium is severely dilated and the right atrium is moderately dilated. The aortic valve is mildly calcified but not stenotic. The mitral valve leaflets are mildly thickened but not stenotic. The tricuspid valve is normal. There is mild mitral regurgitation and moderate to severe tricuspid regurgitation. There is a small patent faramen ovale as detailed above.
[2018-04-10] MEDS: Tmp-Smz 800 mg-160 mg DS Tab PO SCH ×2 (12:40→22:15)
--- NOTE | 2018-04-10 15:00 | CP.PCM.PN ---
Subjective - Date & Time of Evaluation Date of Evaluation: 04/10/18 Time of Evaluation: 07:20 - Subjective Subjective: Patient seen and examined bedside with Dr Billingsley. reports feeling better, but noticed with SOB while talking. able to talk in full sentences. Denies chest pain, n,v,abd pain. had 1 BM today. noted hyponatremia will repeat BMP Pending Echo Objective - Vital Signs/Intake and Output Vital Signs (last 24 hours): Temp Pulse Resp BP Pulse Ox 97.4 F L 78 18 101/60 98 04/10/18 12:00 04/10/18 12:00 04/10/18 12:00 04/10/18 12:00 04/10/18 12:00 - Medications Medications: Current Medications Atorvastatin Calcium (Lipitor) 20 mg PO HS [facility] Last Admin: 04/09/18 22:03 Dose: 20 mg Clonidine HCl (Catapres) 0.1 mg PO BID [facility] Last Admin: 04/10/18 08:44 Dose: 0.1 mg Furosemide (Lasix) 40 mg IV DAILY [facility] Last Admin: 04/10/18 08:47 Dose: 40 mg Metoprolol Tartrate (Lopressor) 200 mg PO BID [facility] Last Admin: 04/10/18 08:46 Dose: 200 mg Potassium Chloride (K-Dur 20 Meq Er Tab) 20 meq PO DAILY [facility] Last Admin: 04/10/18 08:48 Dose: 20 meq Trimethoprim/Sulfamethoxazole (Bactrim Ds Tab) 1 tab PO Q12 [facility] PRN Reason: Protocol Last Admin: 04/10/18 12:40 Dose: 1 tab Valsartan (Diovan) 320 mg PO DAILY [facility] Last Admin: 04/10/18 08:46 Dose: 320 mg - Labs Labs: 04/09/18 04:30 04/10/18 05:10 - Constitutional Appears: Non-toxic, No Acute Distress - Head Exam Head Exam: ATRAUMATIC, NORMOCEPHALIC - Eye Exam Eye Exam: Normal appearance - ENT Exam ENT Exam: Mucous Membranes Moist - Respiratory Exam Respiratory Exam: Rales. absent: Rhonchi, Wheezes Additional comments: scattered bibasa. good air entry - Cardiovascular Exam Cardiovascular Exam: REGULAR RHYTHM, +S1, +S2 - GI/Abdominal Exam GI & Abdominal Exam: Soft, Normal Bowel Sounds. absent: Tenderness - Extremities Exam Extremities Exam: Normal Inspection. absent: Pedal Edema - Neurological Exam Neurological Exam: Alert, Awake, Oriented x3 - Psychiatric Exam Psychiatric exam: Normal Affect, Normal Mood - Skin Skin Exam: Intact Assessment and Plan (1) Congestive heart failure Assessment & Plan: -acute exacerbation -systolic -Echo EF: 35-40 -c/w lasix -Movement Assembler consult appreciated Status: Acute (2) UTI (urinary tract infection) Assessment & Plan: -Bactrim DS 1 tab Q 12h -urine cx e coli sensitive to sulfas Status: Acute (3) Hyponatremia Assessment & Plan: -may be 2/2 CHF vs SIADH -serum osmolality -urine lytes -fluids restriction -patient asymptomatic. -Hold clonidine. may cause hyponatremia Status: Acute (4) DVT prophylaxis Assessment & Plan: lovenox 40 mg sc daily Status: Acute
[2018-04-10] MEDS: Enoxaparin 40 mg Syringe SC SCH (16:29)
--- NOTE | 2018-04-10 21:15 | CP.PCM.PN ---
Subjective - Date & Time of Evaluation Date of Evaluation: 04/10/18 Time of Evaluation: 21:00 - Subjective Subjective: Patient has less dyspnea. no current chest pain Objective - Vital Signs/Intake and Output Vital Signs (last 24 hours): Temp Pulse Resp BP Pulse Ox 97.5 F L 71 18 106/59 L 99 04/10/18 16:21 04/10/18 16:28 04/10/18 16:21 04/10/18 16:28 04/10/18 16:21 - Medications Medications: Current Medications Atorvastatin Calcium (Lipitor) 20 mg PO HS [facility] Last Admin: 04/09/18 22:03 Dose: 20 mg Clonidine HCl (Catapres) 0.1 mg PO BID [facility] Last Admin: 04/10/18 08:44 Dose: 0.1 mg Enoxaparin Sodium (Lovenox) 40 mg SC DAILY [facility] PRN Reason: Protocol Last Admin: 04/10/18 16:29 Dose: 40 mg Furosemide (Lasix) 40 mg IV DAILY [facility] Last Admin: 04/10/18 08:47 Dose: 40 mg Metoprolol Tartrate (Lopressor) 200 mg PO BID [facility] Last Admin: 04/10/18 16:28 Dose: 200 mg Potassium Chloride (K-Dur 20 Meq Er Tab) 20 meq PO DAILY [facility] Last Admin: 04/10/18 08:48 Dose: 20 meq Trimethoprim/Sulfamethoxazole (Bactrim Ds Tab) 1 tab PO Q12 [facility] PRN Reason: Protocol Last Admin: 04/10/18 12:40 Dose: 1 tab Valsartan (Diovan) 320 mg PO DAILY [facility] Last Admin: 04/10/18 08:46 Dose: 320 mg - Labs Labs: 04/09/18 04:30 04/10/18 05:10 - Constitutional Appears: Non-toxic - Head Exam Head Exam: NORMAL INSPECTION - Eye Exam Eye Exam: Normal appearance - ENT Exam ENT Exam: Mucous Membranes Moist - Neck Exam Neck Exam: Normal Inspection - Respiratory Exam Respiratory Exam: NORMAL BREATHING PATTERN - Cardiovascular Exam Cardiovascular Exam: Irregular Rhythm - GI/Abdominal Exam GI & Abdominal Exam: Normal Bowel Sounds - Rectal Exam Rectal Exam: Deferred - Extremities Exam Extremities Exam: absent: Pedal Edema - Back Exam Back Exam: NORMAL INSPECTION - Neurological Exam Neurological Exam: Alert - Psychiatric Exam Psychiatric exam: Normal Affect - Skin Skin Exam: Normal Color Assessment and Plan (1) Dyspnea Assessment & Plan: I reviewed the echocardiogram. Patient has moderate to severe LV dsyfunction. This is the likely contrbutor to the patient's symptoms. patient will require evaluation for myocardial ischemia. recommend stress test. I discussed my recommendations with the patient's son. Status: Acute (2) Congestive heart failure Status: Acute
[2018-04-11 07:53] LABS: ALB/GLOB RATIO 0.8 (1.0-2.1); ALBUMIN 3.2 g/dL (3.5-5.0); ALT/SGPT 69 U/L (9-52); AST/SGOT 46 U/L (14-36); BLOOD UREA NITROGEN 17 mg/dl (7-17); CALCIUM 8.9 mg/dL (8.4-10.2); GFR AFRICAN-AMERICAN > 60; GFR NON-AFRICAN AMERICAN > 60
--- NOTE | 2018-04-11 09:04 | CP.PCM.PN ---
Subjective - Date & Time of Evaluation Date of Evaluation: 04/11/18 Time of Evaluation: 07:20 - Subjective Subjective: Patient seen and examined bedside with Dr Billingsley. reports feeling better,less SOB. Denies chest pain, n,v,abd pain. NA 128 in the morning. Will go for stress test today Objective - Vital Signs/Intake and Output Vital Signs (last 24 hours): Temp Pulse Resp BP Pulse Ox 98.4 F 67 18 133/69 98 04/11/18 08:00 04/11/18 08:00 04/11/18 08:00 04/11/18 08:00 04/11/18 08:00 - Medications Medications: Current Medications Atorvastatin Calcium (Lipitor) 20 mg PO HS [facility] Last Admin: 04/10/18 22:15 Dose: 20 mg Clonidine HCl (Catapres) 0.1 mg PO BID [facility] Last Admin: 04/10/18 08:44 Dose: 0.1 mg Enoxaparin Sodium (Lovenox) 40 mg SC DAILY [facility] PRN Reason: Protocol Last Admin: 04/10/18 16:29 Dose: 40 mg Furosemide (Lasix) 40 mg IV DAILY [facility] Last Admin: 04/10/18 08:47 Dose: 40 mg Metoprolol Tartrate (Lopressor) 200 mg PO BID [facility] Last Admin: 04/10/18 16:28 Dose: 200 mg Potassium Chloride (K-Dur 20 Meq Er Tab) 20 meq PO DAILY [facility] Last Admin: 04/10/18 08:48 Dose: 20 meq Trimethoprim/Sulfamethoxazole (Bactrim Ds Tab) 1 tab PO Q12 [facility] PRN Reason: Protocol Last Admin: 04/10/18 22:15 Dose: 1 tab Valsartan (Diovan) 320 mg PO DAILY [facility] Last Admin: 04/10/18 08:46 Dose: 320 mg - Labs Labs: 04/09/18 04:30 04/11/18 05:55 Assessment and Plan - Assessment and Plan (Free Text) Plan: Assessment and Plan (1) Congestive heart failure Assessment & Plan: -acute exacerbation -systolic -Echo EF: 35-40 -c/w lasix -Health Unit Clerk consult appreciated: recommends stress test Status: Acute (2) UTI (urinary tract infection) Assessment & Plan: -Bactrim DS 1 tab Q 12h -urine cx e coli sensitive to sulfas Status: Acute (3) Hyponatremia Assessment & Plan: -may be 2/2 CHF vs SIADH -serum osmolality borderline low -urine lytes normal -fluids restriction -patient asymptomatic. -Hold clonidine, hold lasix Status: Acute (4) DVT prophylaxis Assessment & Plan: lovenox 40 mg sc daily Status: Acute
[2018-04-11] MEDS ORDERED: Aminophylline 25 mg/ml Inj ONE (10:34)
--- NOTE | 2018-04-11 11:09 | US ---
PROCEDURE: Ultrasound of the Kidneys HISTORY: New onset CHF COMPARISON: None available. TECHNIQUE: Sonogram of the kidneys. FINDINGS: Spectral analysis of the abdominal aorta reveals the peak systolic velocity of 64.1 centimeter/second. Peak systolic velocity at the right renal artery origin is 127.3 cm/sec. Peak soft velocity at the left renal artery is 114.4 cm/sec. These measurements yield renal artery aortic ratios of 2.0 at the right and 1.7 on the left, both of which are normal. On this basis, there is no spectral evidence to suggest renal artery stenosis bilaterally. Further characterization can provided by conventional DSA or CT angiography. RIGHT KIDNEY: Measures: 8.1 x 3.2 x 3.9 cm. Right kidney is lower limits normal size with a simple, avascular cyst exophytic off the mid to lower pole anteriorly, measuring 2.4 x 2.0 x 2.3 cm. The right renal parenchyma is otherwise unremarkable appearing. No stone, solid mass lesion or hydronephrosis visualized. LEFT KIDNEY: Measures: 7.9 x 4.1 x 4.6 cm. The left kidney is borderline atrophic with a simple, avascular cyst exophytic off the midpole anteriorly measuring 2.2 x 2.1 x 2.3 cm. No stone, solid mass lesion or hydronephrosis visualized. OTHER FINDINGS: None. IMPRESSION: 1. No spectral evidence to suggest renal artery stenosis bilaterally based on renal artery ratios as described above. 2. Borderline bilateral renal atrophy. No obstructive uropathy, solid mass or urolithiasis appreciable. Small bilateral simple cysts are as noted above. .
[2018-04-11] MEDS: Potassium Chloride 20 mEq ER Tab PO SCH (12:46)
[2018-04-11] MEDS: Tmp-Smz 800 mg-160 mg DS Tab PO SCH ×2 (12:47→22:10)
[2018-04-11] MEDS: Enoxaparin 40 mg Syringe SC SCH (12:49)
--- NOTE | 2018-04-11 18:24 | CP.PCM.PN ---
Subjective - Date & Time of Evaluation Date of Evaluation: 04/11/18 Time of Evaluation: 18:10 - Subjective Subjective: no current dyspnea or edema Objective - Vital Signs/Intake and Output Vital Signs (last 24 hours): Temp Pulse Resp BP Pulse Ox 97.8 F 70 18 130/61 99 04/11/18 15:37 04/11/18 16:55 04/11/18 15:37 04/11/18 16:55 04/11/18 15:37 Intake and Output: 04/11/18 04/11/18 06:59 18:59 Intake Total 400 Balance 400 - Medications Medications: Current Medications Atorvastatin Calcium (Lipitor) 20 mg PO HS [facility] Last Admin: 04/10/18 22:15 Dose: 20 mg Clonidine HCl (Catapres) 0.1 mg PO BID [facility] Last Admin: 04/10/18 08:44 Dose: 0.1 mg Enoxaparin Sodium (Lovenox) 40 mg SC DAILY [facility] PRN Reason: Protocol Last Admin: 04/11/18 12:49 Dose: 40 mg Furosemide (Lasix) 40 mg IV DAILY [facility] Last Admin: 04/10/18 08:47 Dose: 40 mg Metoprolol Tartrate (Lopressor) 200 mg PO BID [facility] Last Admin: 04/11/18 16:55 Dose: 200 mg Potassium Chloride (K-Dur 20 Meq Er Tab) 20 meq PO DAILY [facility] Last Admin: 04/11/18 12:46 Dose: 20 meq Trimethoprim/Sulfamethoxazole (Bactrim Ds Tab) 1 tab PO Q12 [facility] PRN Reason: Protocol Last Admin: 04/11/18 12:47 Dose: 1 tab Valsartan (Diovan) 320 mg PO DAILY [facility] Last Admin: 04/11/18 12:47 Dose: 320 mg - Labs Labs: 04/09/18 04:30 04/11/18 05:55 - Constitutional Appears: Non-toxic - Head Exam Head Exam: NORMAL INSPECTION - Eye Exam Eye Exam: Normal appearance - ENT Exam ENT Exam: Mucous Membranes Moist - Neck Exam Neck Exam: Full ROM - Respiratory Exam Respiratory Exam: NORMAL BREATHING PATTERN - Cardiovascular Exam Cardiovascular Exam: REGULAR RHYTHM - GI/Abdominal Exam GI & Abdominal Exam: Normal Bowel Sounds - Rectal Exam Rectal Exam: Deferred - Extremities Exam Extremities Exam: absent: Pedal Edema - Back Exam Back Exam: NORMAL INSPECTION - Neurological Exam Neurological Exam: Alert - Psychiatric Exam Psychiatric exam: Normal Affect - Skin Skin Exam: Normal Color Assessment and Plan (1) Dyspnea Assessment & Plan: I reviewed the stress test. There is no evidence of myocardial ischemia. I recommend medical therapy and blood pressure control. Status: Acute (2) Congestive heart failure Assessment & Plan: blood pressure control. can change to Toprol XL 200 mg daily Status: Acute
[2018-04-12 06:50] LABS: BLOOD UREA NITROGEN 13 mg/dl (7-17); CALCIUM 9.3 mg/dL (8.4-10.2); GFR AFRICAN-AMERICAN > 60; GFR NON-AFRICAN AMERICAN > 60
[2018-04-12 07:49] VITALS: RESP 18
[2018-04-12] MEDS: Potassium Chloride 20 mEq ER Tab PO SCH (09:22)
[2018-04-12] MEDS: Enoxaparin 40 mg Syringe SC SCH (09:23)
[2018-04-12] MEDS ORDERED: Metoprolol Succinate 100 mg XL Tab PO SCH (09:30)
[2018-04-12 11:52] VITALS: BP 132/62; PULSE 79; TEMP 98; O2SAT 98
--- NOTE | 2018-04-12 14:46 | CP.PCM.DIS ---
Provider - Provider Date of Admission: 04/07/18 17:23 Attending physician: Tyler Bush MD Consults: disc pad knockout worker Dr Villar Time Spent in preparation of Discharge (in minutes): 20 Hospital Course - Lab Results Lab Results: Micro Results 04/07/18 16:15 Urine Urine Culture - Final Escherichia Coli Most Recent Lab Values WBC 8.2 K/uL (4.8-10.8) 04/09/18 04:30 RBC 4.25 Mil/uL (3.80-5.20) 04/09/18 04:30 Hgb 12.9 g/dL (12.0-16.0) 04/09/18 04:30 Hct 37.4 % (34.0-47.0) 04/09/18 04:30 MCV 87.9 fl (81.0-99.0) 04/09/18 04:30 MCH 30.4 pg (27.0-31.0) 04/09/18 04:30 MCHC 34.6 g/dL (33.0-37.0) 04/09/18 04:30 RDW 14.3 % (11.5-14.5) 04/09/18 04:30 Plt Count 382 K/uL (130-400) 04/09/18 04:30 MPV 7.6 fl (7.2-11.7) 04/09/18 04:30 Neut % (Auto) 82.5 % (50.0-75.0) H 04/09/18 04:30 Lymph % (Auto) 7.6 % (20.0-40.0) L 04/09/18 04:30 [place] % (Auto) 8.6 % (0.0-10.0) 04/09/18 04:30 Eos % (Auto) 0.8 % (0.0-4.0) 04/09/18 04:30 Baso % (Auto) 0.5 % (0.0-2.0) 04/09/18 04:30 Neut # (Auto) 6.8 K/uL (1.8-7.0) 04/09/18 04:30 Lymph # (Auto) 0.6 K/uL (1.0-4.3) L 04/09/18 04:30 [place] # (Auto) 0.7 K/uL (0.0-0.8) 04/09/18 04:30 Eos # (Auto) 0.1 K/uL (0.0-0.7) 04/09/18 04:30 Baso # (Auto) 0.0 K/uL (0.0-0.2) 04/09/18 04:30 Neutrophils % (Manual) 81 % (42-75) H 04/07/18 15:30 Band Neutrophils % 5 % (0-2) H 04/07/18 15:30 Lymphocytes % (Manual) 5 % (20-50) L 04/07/18 15:30 Monocytes % (Manual) 9 % (0-10) 04/07/18 15:30 Platelet Estimate Normal (NORMAL) 04/07/18 15:30 ESR 65 mm/hr (0-30) H 04/07/18 15:30 Sodium 128 mmol/l (132-148) L 04/12/18 06:05 Potassium 4.8 MMOL/L (3.6-5.0) 04/12/18 06:05 Chloride 92 mmol/L (98-107) L 04/12/18 06:05 Carbon Dioxide 31 mmol/L (22-30) H 04/12/18 06:05 Anion Gap 10 (10-20) 04/12/18 06:05 BUN 13 mg/dl (7-17) 04/12/18 06:05 Creatinine 0.6 mg/dl (0.7-1.2) L 04/12/18 06:05 Est GFR ( Amer) > 60 04/12/18 06:05 Est GFR (Non-Af Amer) > 60 04/12/18 06:05 Random Glucose 103 mg/dL (65-105) 04/12/18 06:05 Hemoglobin A1c 6.1 % (4.2-6.5) 04/08/18 06:01 Serum Osmolality 273 mosm/kg (272-300) 04/10/18 07:38 Calcium 9.3 mg/dL (8.4-10.2) 04/12/18 06:05 Total Bilirubin 0.7 mg/dl (0.2-1.3) 04/11/18 05:55 AST 46 U/L (14-36) H 04/11/18 05:55 ALT 69 U/L (9-52) H D 04/11/18 05:55 Alkaline Phosphatase 68 U/L (38-126) 04/11/18 05:55 Troponin I 0.0180 ng/mL (0.00-0.120) 04/08/18 07:55 NT-Pro-B Natriuret Pep 1290 pg/ml (0-900) H 04/09/18 04:30 Total Protein 7.1 G/DL (6.3-8.2) 04/11/18 05:55 Albumin 3.2 g/dL (3.5-5.0) L 04/11/18 05:55 Globulin 4.0 gm/dL (2.2-3.9) H 04/11/18 05:55 Albumin/Globulin Ratio 0.8 (1.0-2.1) L 04/11/18 05:55 Triglycerides 76 mg/DL (0-149) 04/08/18 06:01 Cholesterol 118 mg/dL (0-199) 04/08/18 06:01 LDL Cholesterol Direct 60 mg/dL (0-129) 04/08/18 06:01 HDL Cholesterol 29 MG/DL (30-70) L 04/08/18 06:01 Thyroxine (T4) 7.50 ug/dl (5.5-11.0) 04/08/18 06:01 Total T3 0.880 nmol/L (1.49-2.60) L 04/08/18 06:01 TSH 3rd Generation 1.03 mIU/ML (0.46-4.68) 04/08/18 06:01 Urine Color Yellow (YELLOW) 04/07/18 16:15 Urine Clarity Cloudy (Clear) 04/07/18 16:15 Urine pH 7.0 (5.0-8.0) 04/07/18 16:15 Ur Specific [place] 1.012 (1.003-1.030) 04/07/18 16:15 Urine Protein 30 mg/dL (NEGATIVE) 04/07/18 16:15 Urine Glucose (UA) 50 mg/dL (Normal) 04/07/18 16:15 Urine Ketones Negative mg/dL (NEGATIVE) 04/07/18 16:15 Urine Blood Negative (NEGATIVE) 04/07/18 16:15 Urine Nitrate Positive (NEGATIVE) H 04/07/18 16:15 Urine Bilirubin Negative (NEGATIVE) 04/07/18 16:15 Urine Urobilinogen 0.2-1.0 mg/dL (0.2-1.0) 04/07/18 16:15 Ur Leukocyte Esterase Large [place]/uL (Negative) 04/07/18 16:15 Urine RBC (Auto) 4 /hpf (0-3) H 04/07/18 16:15 Urine Microscopic WBC 65 /hpf (0-5) H 04/07/18 16:15 Ur Squamous Epith Cells 4 /hpf (0-5) 04/07/18 16:15 Amorphous Sediment Rare /ul (<OCC) H 04/07/18 16:15 Urine Bacteria Rare (<OCC) 04/07/18 16:15 Urine Osmolality 346 mosm/kg (300-1000) 04/10/18 15:16 Ur Random Sodium 28 meq/L 04/10/18 15:16 Ur Random Potassium 53.1 mmol/L 04/10/18 15:16 - Hospital Course Hospital Course: 82 yo ,f, PMhx/o HTN admitted for progressive SOB and b/l foot swelling. UA showed UTI , Ecoli. Patient on Bactrim. Patient consulted by disc pad knockout worker. Echo EF: 35-40, stress test recommended neg. Patient while on Lasix and Bactrim had asymptomatic hyponatremia. Lasix , clonidine, and Bactrim dc for possible SIADH. Patient cleared to be discharged with amoxacillin q 8 h, Lasix 3 times/ week and f/u disc pad knockout worker and Dr bush Diagnosis on discharge (1) Congestive heart failure -acute exacerbation resolved -systolic -Echo EF: 35-40 -c/w valsartan , metropolol (2) UTI (urinary tract infection) -amoxicillin (3) Hyponatremia -resolving Discharge Exam - Head Exam Head Exam: NORMAL INSPECTION - Eye Exam Eye Exam: Normal appearance - ENT Exam ENT Exam: Mucous Membranes Moist - Respiratory Exam Respiratory Exam: Clear to PA & Lateral. absent: Rales, Rhonchi, Wheezes - Cardiovascular Exam Cardiovascular Exam: REGULAR RHYTHM, +S1, +S2 - GI/Abdominal Exam GI & Abdominal Exam: Normal Bowel Sounds, Soft - Neurological Exam Neurological exam: Alert, Oriented x3 - Psychiatric Exam Psychiatric exam: Normal Affect, Normal Mood - Skin Skin Exam: Intact Discharge Plan - Discharge Medications Prescriptions: Amoxicillin 500 mg PO Q8 #15 tablet Furosemide [Lasix] 20 mg PO MWF #6 tablet Lactobacillus Acidophilus [Bacid Acidophilus] 1 cap PO BID #10 cap Metoprolol Succinate [Toprol XL] 200 mg PO DAILY #30 tab Valsartan [Diovan] 320 mg PO DAILY #30 tab - Follow Up Plan Condition: STABLE Disposition: HOME/ ROUTINE Instructions: Heart Failure, Adult (DC) Additional Instructions: pt. cleared for discharge to home today by , and (stress test reviewed by and neg) follow up with on monday04/16/18 10:00am follow up with on Monday04/18/18 Referrals: Tyler Bush MD [Staff Provider] - Deepak Navarro MD [Staff Provider] -
--- NOTE | 2018-04-13 13:00 | CARD ---
APPROVED REPORT Protocol: LEXISCAN Test Type: Stress Nuclear Medications: ATORVASTATIN CALCIUM 20MG CLONIDINE HCL 0.1MG ENOXAPARIN SODIUM 40MG FUROSEMIDE 40MG METOPROLOL TARTRATE 200MG POTASSIUM CHLORIDE 20MG BACTRIM 1 TAB Q12HRS DIOVAN 320MG Medical History: NEW ONSET CHF Target HR: 137 bpm Resting ECG: normal Resting Heart Rate: 64 bpm Resting Blood Pressure: 134/64mmHg submaximum (85%): 116 bpm TEST SUMMARY PREINJECTPRE-[id number]. [id number]. INJECTIONNS [id number]/64.5. INJECTIONNUC [id number]/66.2. [id number]/64.0. PROCEDURE Pharmacologic stress testing was performed using 0.4mg per 5ml of regadenoson given intravenously over 7-10 seconds. POST EXERCISE Reason for Termination: PROTOCOL COMPLETE Target HR: No Max HR: 61 bpm 67% of Maximum Predicted HR: 137 bpm Exercise duration: 00:42 min:sec, 0 Stage Exercise capacity: 1.0METs Max Blood Pressure: 173/76mmHg Heart Rate response to exercise: appropriate Chest Pain: No, none Angina index: 0 Arrhythmia: No, none ST Change: No, none Deviation: 0 mm Stress EKG Interpretation The patient underwent Lexiscan infusion as per aforementioned protocol. The patient achieved a Max HR of 61 bpm 67% of the maximum predicted HR. No chest pain reported Normal HR and BP response No arrythmias Normal Sinus Rhythm with LVH early repolarization/ No signficant change with Lexiscan infusion EXAM: Myocardial Perfusion REST/STRESS Image QualityGood Imaging Protocol The imaging protocol used to acquire images was Rest Tc-99m/stress Tc-99m 1 day Rest Spect myocardial perfusion imaging was performed in supine position 90 minutes following the injection of 10 mCi of Tc-99 Myoview. Time of rest injection: 7:34 Time of rest imagin:00 At peak stress, the patient was injected intravenously with 30mCi of Tc-99 tetrofosmin after an infusion time of minutes and seconds. Time of stress injection: 12:40 Time of stress imagin Gated Stress Spect was performed 30 minutes after intravenous Tc-99 Myoview injection. The images were gated to evaluate regional wall motion and calculate ventricular ejection fraction. NUCLEAR IMAGE INTERPRETATION The rest and stress images show normal perfusion, normal contraction and thickening. LV Perfusion 1 The rest and stress images show normal perfusion. CONCLUSION 1. Normal Myocardial perfusion with rest and stress 2. Normal Gated LVEF 76% with normal perfusion, thickening and contractility 3. Normal Pharmacologic stress EKG response
== END 2018-04-12 13:50 | disposition home or self-care (01) | DRG 292 ==
LOC: H.ER 14:43 → H.ERHOLD 17:23 → H.TEL 20:31
PROVIDERS: ADMIT Family Medicine; ATTEND Family Medicine
DX: I11.0 Hypertensive heart disease with heart failure (principal); N39.0 Urinary tract infection, site not specified; E87.1 Hypo-osmolality and hyponatremia; Z87.891 Personal history of nicotine dependence; Z90.710 Acquired absence of both cervix and uterus; E78.5 Hyperlipidemia, unspecified; F41.9 Anxiety disorder, unspecified; I50.23 Acute on chronic systolic (congestive) heart failure; B96.20 Unspecified Escherichia coli [E. coli] as the cause of diseases classified elsewhere